=== PATIENT | male | born 1965 | race Caucasian/White ===

== ENCOUNTER 2016-10-24 12:40 | Observation (INO) | payer BC ==
[~2016-10-24] VITALS: Ht 182.9 cm; Wt 122.7 kg
--- NOTE | ~2016-10-24 | DS ---
PATIENT:RENA PEREIRA :63 MEDICAL RECORD: [id number] DISCHARGE SUMMARY ADMISSION DATE: 10/24/16 DISCHARGE DATE: 10/25/16 DISCHARGE DIAGNOSES: 1. Chest pain. 2. Esophagitis. HOSPITAL COURSE: A 51-year-old male who admitted to my office as a walk-in with severe chest pain. It was sharp radiating in the esophagogastric area and left upper quadrant. He took aspirin with some relief. His EKG initially was normal. ____ sent to the ED where cardiac enzymes showed elevated CPK. He had recurrent pain there and responded to nitroglycerin. ____ was admitted to the hospital. Cardiac enzymes were cycled and did not show elevated troponin. His monitor showed sinus rhythm, repeat EKG was unremarkable. Due to the patient's symptoms, he underwent CT of the chest after chest x-ray was normal. It showed some inflammation of thickening of the distal esophagus. For this reason it was felt ____ was likely GI in origin. Liver functions were normal, CBC was normal. He did see cardiology and they felt they could do an outpatient stress test and felt that his chest pain as well was probably noncardiac. He has been tolerating fluids ____ he had little trouble swallowing may be due to esophageal findings. For this reason will place on Protonix 40 mg b.i.d., soft diet. We will schedule with GI for upper endoscopy to confirm esophagitis to rule out other possible causes for dysphagia. The patient is discharged today in improved condition. Diet is soft. Medications are Protonix 40 mg b.i.d., hydrocodone 10-25 one q. 6 hours for severe pain, Soma 350 mg q.8 hours p.r.n. muscle spasm, Tylenol for moderate pain. FOLLOWUP: Return to clinic to see me in 1 week and will schedule GI consultation at that point. TRANSINT:[id number] Voice Confirmation ID: [id number] DOCUMENT ID: [id number] AL BRADLEY MD CC: [id number] DICTATION DATE: 10/25/16 141 FIELD CASHIER: 10/26/16 0714 DIS IN 10/25/16 [id number] [place] [address]
[2016-10-24 13:05] LABS: BASOPHILS 0.3 % (0-2); EOSINOPHILS 1.8 % (0-7); HEMATOCRIT 41.7 % (42.0-54.0); HEMOGLOBIN 13.4 g/dL (13.5-17.5); IMMATURE GRANULOCYTES 0.4 % (0-5); LYMPHOCYTES 34.4 % (15-50); MCH 31.2 pg (26.0-34.0); MCHC 32.1 g/dL (31.0-37.0); MEAN PLATELET VOLUME 12.1 fL (7.4-10.4); NEUTROPHILS 53.1 % (40-80); PLATELET COUNT 217 10x3/uL (130-400); RDW 13.9 % (11.5-14.5); WBC 10.5 10x3/uL (4.8-10.8)
[2016-10-24 13:20] LABS: ALBUMIN 4.1 g/dL (3.4-5.0); ALKALINE PHOSPHATASE 94 U/L (46-116); ALT (SGPT) 54 U/L (10-68); BILIRUBIN - TOTAL 0.25 mg/dL (0.2-1.3); CALC OSMOLALITY 279 mosm/kg (275-300); CALCIUM 9.5 mg/dL (8.5-10.1); CHLORIDE - SERUM 103 mmol/L (98-107); CREATININE - SERUM 0.9 mg/dL (0.6-1.3); GLUCOSE 100 mg/dL (74-106); POTASSIUM - SERUM 4.6 mmol/L (3.5-5.1); PROTEIN - SERUM 7.9 g/dL (6.4-8.2); SODIUM 140 mmol/L (136-145); UREA NITROGEN 14 mg/dL (7-18); eGFR NON AFRICAN AMERICAN > 90 mL/min (90-120)
[2016-10-24 13:31] LABS: CKMB 2.5 U/L (0.0-3.6); CREATINE KINASE 347 UL (21-232)
[2016-10-24 13:33] LABS: TROPONIN-I < 0.017 ng/mL (0.000-0.060)
[2016-10-24 16:00] VITALS: BP 129/92
[2016-10-24] MEDS ORDERED: HYDROCODONE-APA1 TAB PO (16:14)
[2016-10-24] MEDS ORDERED: SOMA350 MG PO (16:15)
--- NOTE | 2016-10-24 16:23 | NUR ---
RECIVED FROM ER PER WC. AT SIDE. ADMIT ASSESSMENT PER RN
[2016-10-24 17:22] VITALS: BP 129/92; Ht 182.9 cm; Wt 122.7 kg
--- NOTE | 2016-10-24 18:12 | NUR ---
WITHOUT CHANGES OR DISTRESS NOTED AT THIS TIME.
--- NOTE | 2016-10-24 19:00 | NUR ---
INITIAL ROUNDS MADE. PT SITTING UP IN BED WATCHING TV WITH FAMILY IN ROOM. DENIES NEEDS OR C/O AT THIS TIME. TELE SR. DISCUSSED PLAN OF CARE AND NPO AFTER MN FOR CT IN AM.
[2016-10-24 20:24] LABS: CKMB 1.7 U/L (0.0-3.6); CREATINE KINASE 290 UL (21-232)
[2016-10-24 20:33] LABS: TROPONIN-I < 0.017 ng/mL (0.000-0.060)
[2016-10-24 21:27] VITALS: BP 151/65
--- NOTE | 2016-10-25 00:37 | NUR ---
NURSING SCHEDULER AT BEDSIDE FOR VS. NEEDS ADDRESSED AT THIS TIME. CALL LIGHT IN REACH. WILL CONT TO MONITOR.
[2016-10-25 01:46] VITALS: BP 148/76
[2016-10-25 03:42] LABS: CKMB 1.4 U/L (0.0-3.6); CREATINE KINASE 250 UL (21-232)
[2016-10-25 03:44] LABS: TROPONIN-I < 0.017 ng/mL (0.000-0.060)
--- NOTE | 2016-10-25 05:24 | NUR ---
RESTING WELL WITH EYES CLOSED, CONT TO MONITOR.
[2016-10-25 06:24] VITALS: BP 113/67
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
[2016-10-25 08:00] VITALS: BP 137/90
[2016-10-25 11:59] VITALS: BP 140/75
[2016-10-25] MEDS ORDERED: PROTONIX40 MG PO (14:08)
--- NOTE | 2016-10-25 14:56 | NUR ---
IV AND TELEMETRY DCD. DC PLANS GIVEN. UNDERSTANDING VOICED. LEAVING HOSPITOL WITH SON.
== END 2016-10-25 14:57 | disposition home or self-care (01) ==
LOC: D.ER 12:40 → OBSVTIME 15:56 → D.M2 15:56
PROVIDERS: Emergency Medicine Emergency Medical Services; ADMIT Family Medicine
DX: R07.89 Other chest pain (principal); K20.9 Esophagitis, unspecified; I10 Essential (primary) hypertension; E66.9 Obesity, unspecified; Q89.01 Asplenia (congenital); Z72.0 Tobacco use

== ENCOUNTER → 2016-11-03 08:14 | Outpatient (CLI) | payer BC ==
[2016-10-24 17:22] VITALS: BMI 36.7
[~2016-11-03 08:14] MED LIST: HYDROCODONE-APA1 TAB PO; PROTONIX40 MG PO; SOMA350 MG PO
== END | disposition home or self-care (01) ==
LOC: D.RAD 08:14
DX: R13.10 Dysphagia, unspecified (principal)